=== PATIENT | female | born 1960 | race Caucasian/White ===

== ENCOUNTER 2016-11-22 18:32 | Emergency (ER) | payer MEDICARE, OTHER ==
[2016-11-22 19:00] VITALS: BP 128/86; TEMP 98.7; O2SAT 99
[2016-11-22] MEDS ORDERED: Tramadol 25 mg PO STA (20:02)
--- NOTE | 2016-11-22 20:13 | C.PDOC ---
History Of Present Illness 56 y/o female pmhx cervical disc herniation presents to the ED with complaints of right neck pain radiating down right arm. Pt typically takes tramadol for pain but recently ran out. She has appointment with PMD in 2 days but requesting pain medication until then. Denies weakness, numbness, or any other complaints. Time Seen by Provider: 11/22/16 19:31 Chief Complaint (Nursing): Back Pain History Per: Patient History/Exam Limitations: no limitations Onset/Duration Of Symptoms: Days Current Symptoms Are (Timing): Still Present Quality Of Discomfort: "Pain" Severity: Moderate Previous Symptoms: Neck Pain, Chronic Pain Associated Symptoms: None Recent travel outside of the [place]: No Past Medical History Reviewed: Historical Data, Nursing Documentation, Vital Signs Vital Signs: Last Vital Signs Temp 98.7 F 11/22/16 18:59 Pulse 114 H 11/22/16 18:59 Resp 17 11/22/16 18:59 BP 128/86 11/22/16 18:59 Pulse Ox 99 11/22/16 20:15 - Medical History PMH: HTN Family History: States: Unknown Family Hx - Social History Hx Alcohol Use: No Hx Substance Use: No - Immunization History Hx Tetanus Toxoid Vaccination: No Hx Influenza Vaccination: Yes Hx Pneumococcal Vaccination: No Review Of Systems Musculoskeletal: Positive for: Neck Pain (radiating to right arm). Negative for : Back Pain Neurological: Negative for: Weakness, Numbness Physical Exam - Physical Exam Appears: Non-toxic, No Acute Distress Skin: Warm, Dry, No Rash Head: Atraumatic, Normacephalic Neck: Normal ROM, No Midline Cervical Tenderness, Paracervical Tenderness ( right sided), Supple Cardiovascular: Rhythm Regular, No Murmur Respiratory: Normal Breath Sounds, No Rales, No Rhonchi, No Wheezing Extremity: Normal ROM, No Tenderness Extremity: Bilateral: Atraumatic Neurological/Psych: Oriented x3, Normal Speech, Normal Motor, Normal Sensation ED Course And Treatment O2 Sat by Pulse Oximetry: 99 (room air) Pulse Ox Interpretation: Normal Progress Note: Plan: tramadol Disposition Counseled Patient/Family Regarding: Diagnosis, Need For Followup - Disposition Referrals: Rik Hardin MD [Primary Care Provider] - Disposition: HOME/ ROUTINE Disposition Time: 20:19 Condition: STABLE Additional Instructions: Keep your appointment with PMD Take tramadol as perscribed Return to ER if worse Prescriptions: traMADol [Ultram] 50 mg PO TID #4 tab Instructions: Chronic Pain (ED) - Clinical Impression Clinical Impression: Cervical radiculitis - PA / PANTOGRAPHER / Resident Statement MD/DO has reviewed & agrees with the documentation as recorded. - Scribe Statement The provider has reviewed the documentation as recorded by the Brittanyibdanna Aguilar All medical record entries made by the Saniya were at my direction and personally dictated by me. I have reviewed the chart and agree that the record accurately reflects my personal performance of the history, physical exam, medical decision making, and the department course for this patient. I have also personally directed, reviewed, and agree with the discharge instructions and disposition.
[2016-11-22 20:35] VITALS: PULSE 89; RESP 18
== END 2016-11-22 20:35 | disposition home or self-care (01) ==
LOC: C.ER 18:32 → SUPCPDRO 18:32 → C.ER 20:35
DX: M54.12 Radiculopathy, cervical region (principal)